=== PATIENT | male | born 1970 | race Caucasian/White ===

== ENCOUNTER 2018-03-01 15:01 | Observation (INO) ==
[2018-03-01] MEDS ORDERED: Sodium Chloride 0.9% 1,000 ML PRIMARY IV ONE (15:25)
--- NOTE | 2018-03-01 15:29 | EKG ---
[address] [place] [address] Measurements Intervals Leiter Rate: 64 P: 59 CT: 164 QRS: 102 QRSD: 124 T: 117 QT: 417 QTc: 427 Interpretive Statements SINUS RHYTHM POSSIBLE RIGHT VENTRICULAR HYPERTROPHY [SOME/ALL OF: PROMINENT R IN V1, LATE TRANSITION, RAD, SAMANTHA, SSS] ANTEROSEPTAL MYOCARDIAL INFARCTION [40+ ms Q WAVE IN V1-V4], POSSIBLY ACUTE ACUTE CO Compared to ECG 03/05/2017 02:43:21 Myocardial infarct finding now present ST (T wave) deviation no longer present Early repolarization no longer present T-wave abnormality no longer present Electronically Signed On 03-02-18 08:51:12 MDT by Elvin Bobo MD [email or web address]
[2018-03-01 15:42] LABS: BASOPHILS # (AUTO) 0.07 10*3/UL; BLOOD UREA NITROGEN 12 mg/dL (7-22); BUN/CREATININE RATIO 17.14 (6-20); EOSINOPHILS # (AUTO) 0.43 10*3/UL; Hematocrit [HCT] 45.6 % (42.0-52.0); LYMPHOCYTES # (AUTO) 2.37 10*3/uL; MEAN CORPUSCULAR HEMOGLOBIN 32.1 PG (27-31); MEAN CORPUSCULAR HGB CONC 35.1 g/dL (33-37); MEAN CORPUSCULAR VOLUME 91.4 FL (80-90); MEAN PLATELET VOLUME 8.8 FL (7.4-12.2); MONOCYTES # (AUTO) 0.82 10*3/UL (0.3-0.8); MONOCYTES % (AUTO) 11.4 % (5-15); NEUTROPHILS % (AUTO) 48.6 % (50-80); RED BLOOD COUNT 4.99 10^6/uL (4.70-6.10)
[2018-03-01 15:43] LABS: PLATELET MORPHOLOGY COMMENT NORMAL MORPHOLOGY (NORM); RBC MORPHOLOGY COMMENT NORMAL MORPHOLOGY (NORM); WBC MORPHOLOGY COMMENT NORMAL MORPHOLOGY (NORM)
--- NOTE | 2018-03-01 15:51 | DI ---
EXAM: CT Head Without Intravenous Contrast CLINICAL HISTORY: Stroke symptoms TECHNIQUE: Axial computed tomography images of the head/brain without intravenous contrast. COMPARISON: No relevant prior studies available. FINDINGS: Brain: Unremarkable. No evidence of acute intracranial hemorrhage. No significant white matter disease. No edema. No mass effect or midline shift. Ventricles: Unremarkable. No ventriculomegaly. Bones/joints: Unremarkable. No depressed skull fracture. Soft tissues: Unremarkable. Sinuses: Unremarkable as visualized. No acute sinusitis. Mastoid air cells: Unremarkable as visualized. No mastoid effusion. IMPRESSION: Unremarkable noncontrast CT of the head/brain. Critical Value Communications 03/01/18 15:53 Call Doctor Regarding Stroke, called Dr. Karthik Childs on 03/01 15:55 (-06:00)
[2018-03-01] MEDS ORDERED: ASPIRIN 81 MG (BABY) CHEWABLE TABLET PO ONE (17:00)
[2018-03-01] MEDS ORDERED: LIDOCAINE W/ SODIUM BICARB 0.5 ML SYR SUBD PRN (17:29)
--- NOTE | 2018-03-01 17:32 | PDOC ---
HPI - History of Present Illness Date of Service: 03/01/18 Time of Service: 17:00 Chief Complaint: Transient speech difficulty and right arm weakness History of Present Illness: This is a 47 years old male with medical history significant for history of coronary artery disease with previous OR status post 4 vessel CABG in 2016, history of depression and history of neck surgery who came into the hospital with history of speech difficulty and right arm weakness which started 30 minutes before he presented to the ER he said on his way symptoms started to subside and by the time he was here his symptoms resolved. He Had a CT of the head which was negative he didn't take aspirin for 2 days as he ran out and today he took accidentally a dosage of Focalin which is one of his son medications by mistake. He Is denying chest pain or shortness of breath. Past Medical History Medical History: 1. History of coronary artery disease with previous OR status post CABG in 2015. 2. A depression. 3. History of degenerative disc disease Surgical History: 1. CABG in 2016. 2. Inguinal hernia repair. 3. Lumbar spinal fusion. 4. Rotator cuff repair. 5. Sacral Rhizotomy Pertinent Family History: His grandfather from coronary artery disease Past Social History: He used to smoke and quit 20 half years ago, doesn't drink no drugs Tobacco Use: Former Smoker In the Past 12 Months, Have Used or Abuse Any of the Following Substance: Marijuana Alcohol Use: None Medication / Allergies Home Medications: Home Medications 3 Medication Instructions Recorded Confirmed Type Aspirin [Maria C Chewable] 81 mg PO DAILY 02/29/16 03/01/18 History Atorvastatin Calcium 1 tab PO QHS tab 03/01/16 03/01/18 History Metoprolol Tartrate 0.5 tab PO DAILY tab 03/01/16 03/01/18 History mirtazapine 7.5 mg tablet 7.5 mg PO QHS #30 tab 03/12/17 03/01/18 Rx nitroglycerin 0.4 mg sublingual 0.4 mg SL PRN PRN #30 tab 06/20/17 03/01/18 Rx tablet acetaminophen 325 mg capsule 325 mg PO Q6H PRN 11/28/17 03/01/18 History spironolactone 25 mg tablet 12.5 mg PO DAILY 11/28/17 03/01/18 History Escitalopram Oxalate [Lexapro] 10 mg PO DAILY 03/01/18 03/01/18 History Gabapentin 300 mg PO TID 03/01/18 03/01/18 History Allergies/Adverse Reactions: Allergies 3 Allergy/AdvReac Type Severity Reaction Status Date / Time fentanyl AdvReac HALLUCINATI Verified 03/01/18 18:27 ONS morphine AdvReac HALLUCINATI Verified 03/01/18 18:27 ONS Review of Systems - Review of Systems All Systems: Reviewed & No Additional Complaints Except as Stated Exam - Vitals Vital Signs: Vital Signs Temperature 97.9 F Temperature Source Temporal Artery Scan Pulse Rate [Pulse Oximeter] 72 Respiratory Rate 18 Blood Pressure [Right Arm] 139/81 Pulse Ox 97 Oxygen Delivery Method Room Air Height 5 ft 11 in Weight 179 lb 3.2 oz - General General Appearance: No Acute Distress, Cooperative - Head Head Exam: Normal Inspection - Eye Eye Exam: POSITIVE: Normal Appearance - ENT ENT Exam: POSITIVE: Normal Exam - Neck Neck Exam: Normal Inspection - Respiratory Respiratory Exam: POSITIVE: Clear to Auscultation - Bilaterally - Cardiovascular Cardiovascular Exam: POSITIVE: RRR - GI/Abdominal GI/Abdominal Exam: POSITIVE: Normal Bowel Sounds, Non Tender, Non Distended, Soft, No Organomegaly - Rectal Rectal Exam: POSITIVE: Deferred - External Exam: POSITIVE: Deferred - Extremities Extremities Exam: POSITIVE: Normal Inspection - Back Back Exam: POSITIVE: Normal Inspection - Neurological Neurological Exam: POSITIVE: Alert, Oriented x 3, Normal Gait, CN II-XII Intact , No Facial Droop, Speech Intact / Clear - Psychiatric Psychiatric Exam: POSITIVE: Normal Affect Results - Labs CBC and BMP: 03/01/18 14:55 03/01/18 14:55 - EKG Data -: EKG Interpreted by Me Rate: Normal EKG Shows Normal: Sinus Rhythm - EKG Data EKG Interpretation: Other (I don't see significant change from the EKG that he had in 2017) - Imaging Status: Report Reviewed by Me (CT head Unremarkable noncontrast CT of the head /brain.) Assessment and Plan - Patient Problems (1) TIA (transient ischemic attack) Current Visit: Yes Status: Acute Comment: Symptoms suggestive of TIA. We gave him aspirin will continue with aspirin. We'll oreder an MRI of his head and ultrasound of the carotids. He said he had about 6 weeks ago an echocardiogram his ejection fraction was 40%. Depending on the finding we may discuss with neurology and see whether Plavix needs to be added. Will put him on telemetry. Code(s): G45.9 - Transient cerebral ischemic attack, unspecified (2) History of coronary artery disease Current Visit: Yes Status: Acute Comment: Continue previous medications Code(s): Z86.79 - Personal history of other diseases of the circulatory system
[2018-03-01] MEDS ORDERED: Spironolactone Tab 25 MG TAB PO SCH (18:00)
[2018-03-01] MEDS ORDERED: ATORVASTATIN 40 MG TABLET PO SCH (21:00)
[2018-03-01] MEDS ORDERED: Mirtazapine Tab 15 MG TAB PO SCH (21:00)
[2018-03-02] MEDS: GABAPENTIN 300 MG CAPSULE PO SCH ×2 (00:20→11:05)
--- NOTE | 2018-03-02 04:01 | PDOC ---
Neuro Symptoms / Deficit HPI - General Chief Complaint: Neurological Complaints Stated Complaint: stoke symptoms Date Seen by Provider: 03/01/18 Time Seen by Provider: 15:30 Source: POSITIVE: Patient, EMS Exam Limitations: POSITIVE: No limitations Nurse's Notes Reviewed & Considered: Yes EMS Report Reviewed & Considered: Verbal - History of Present Illness Initial Comments: The patient is a 47-year-old male who arrives to the emergency room by ambulance. He states that approximately 40 minutes [employer] he was visiting with his father and then developed an abrupt onset of expressive aphasia and weakness in his right upper extremity with some associated confusion. He states he "wasn't able to speak". He states he was not able to grasp with his right hand. Bystanders called the ambulance. He states his symptoms began to improve in route to the hospital and his symptoms are much less now. He is presently able to express himself and there is no obvious aphasia. He still has some residual weakness to his right hand grasp. He denies any head, chest or abdominal pain. No recent head trauma. No difficulty swallowing. No lower extremity symptoms. Body Location Affected: REPORTS: Upper Extremity (R) (Right upper extremity weakness), Other (Aphasia) Timing: REPORTS: Abrupt Duration: 1 hour (Onset reportedly about 40 minutes [employer]) Severity: Moderate Quality: REPORTS: Other (Denies any head, chest or other pain) Context: DENIES: Insect Bite, Tick Bite, Falling Injury, Head Injury, Other Character of Deficit(s): REPORTS: RUE, Other (Expressive aphasia) Associated Symptoms: DENIES: Fever, Chills, Sweating, Chest Pain, Neck Pain, Back Pain, Headache, Fainting, Seizure, Altered Mental Status, Disoriented, Confused, Agitated, Trouble Concentrating, Trouble Thinking, Decreased Responsiveness, Unresponsive, Other Usual Ability to Walk/Stand: REPORTS: Walks w/o Assistance Usual Cognition: REPORTS: Alert & Oriented x3 Similar Symptoms Previously: No Recently seen/treated/hospitalized: No Any Prior Injuries Related to Current Complaint?: No - Patient Home Medications Home Medications: Home Medications Aspirin [Maria C Chewable] 81 mg PO DAILY 02/29/16 Atorvastatin Calcium 1 tab PO QHS tab 03/01/16 Metoprolol Tartrate 0.5 tab PO DAILY tab 03/01/16 mirtazapine 7.5 mg tablet 7.5 mg PO QHS #30 tab 03/12/17 nitroglycerin 0.4 mg sublingual tablet 0.4 mg SL PRN PRN #30 tab 06/20/17 acetaminophen 325 mg capsule 325 mg PO Q6H PRN 11/28/17 spironolactone 25 mg tablet 12.5 mg PO DAILY 11/28/17 Escitalopram Oxalate [Lexapro] 10 mg PO DAILY 03/01/18 Gabapentin 300 mg PO TID 03/01/18 - Patient Allergies Allergies/Adverse Reactions: Allergies 3 Allergy/AdvReac Type Severity Reaction Status Date / Time fentanyl AdvReac HALLUCINATI Verified 03/01/18 18:27 ONS morphine AdvReac HALLUCINATI Verified 03/01/18 18:27 ONS Past Medical History - heen HEENT History: Denies History Additional HEENT History: left ear feels like pressure Cardiovascular History: Previous [place], Other (please comment) Additional Cardiovasular History: 4 VESSEL CABG 02-09-16 Respiratory History: Denies History Additional Respiratory History: previous smoker 2 years ago Gastrointestinal History: Denies History Genitourinary History: Denies History Endocrine History: Denies History Musculoskeletal History: Other (please comment) Prosthesis or Implant: No Additional Musculoskeletal History: C4-6 fusion. RIGHT SHOULDER SCOPE Neurological History: TIA Blood Disorders: Denies History Psychiatric History: Depression, Anxiety Disorders History of Sexually Transmitted Diseases: No Male Reproductive History: Denies History Cancer History: Denies History In Past Year Been Physically Harmed or Verbally Threatened: No History of MDRO: No History of Other Communicable Diseases: No Tobacco Use: Former Smoker Alcohol Use: Rarely In the Past 12 Months, Have Used or Abuse Any Substance: Marijuana Previous Surgical History: Yes Type / Date of Surgery: RIGHT SHOULDER, FUSION C4-6, 4 VESSEL CABG, hernia, eye surgery Anesthesia Reactions: No Malignant Hyperthermia: No Significant Family History: Heart disease, Cancer, Diabetes Additional Family History: both sides diabetes, cardiac mother side, cancer both sides Past Medical History Reviewed: Reviewed - No Changes ROS - Limitations ROS Limitations: No Limitations Constitution: REPORTS: Denies Symptoms Cardiovascular: REPORTS: Denies Cardiac Symptoms Respiratory: REPORTS: Denies Resp Symptoms Neurological: REPORTS: Weakness (Right upper extremity, especially with hand grasp), Other (Expressive aphasia. Neurologic symptoms resolving well by the time the patient reaches the emergency room) Gastrointestinal: REPORTS: Denies GI Symptoms Endocrine: REPORTS: Denies Symptoms Musculoskeletal: REPORTS: Denies MS Symptoms Genitourinary: REPORTS: Denies Symptoms Eyes: REPORTS: Denies Symptoms ENT: REPORTS: Denies Symptoms Skin: REPORTS: Denies Skin Symptoms Lympathic: REPORTS: Denies Lympathic Symptoms Immunologic: POSITIVE: Denies Symptoms Psychiatric: POSITIVE: Denies Psych Symptoms Neuro Symptoms / Deficit Exam - General Appearance General Appearance: POSITIVE: No Acute Distress, Alert - HEENT HEENT: POSITIVE: Head Inspection Nml, Eyes Inspection Nml, Ears Inspection Nml, Nose Inspection Nml, Oral/Dental Inspect. Nml, Pharynx Inspect. Nml, PERRL, EOMI - Pupil Size Pupil Size: 4 mm: Bilateral (PERRLA; extraocular movements intact) - Neuro / Psych Higher Functions: POSITIVE: Oriented to Person, Oriented to Place, Oriented to Time, Normal Speech, Normal Cognition, Appropriate Mood, Appropriate Affect. NEGATIVE: Disoriented to Person, Disoriented to Place, Disoriented to Time, Speech Abnormalities, Cognition Abnormalities, Depressed Mood, Depressed Affect , Abnml Response to Command, No Response to Command, Eyes Open to Command, Slow Response to Command, Inapp Response to Command, Expressive Aphasia, Receptive Aphasia, Abnml Response to Pain, Withdraws to Pain, Flexor to Pain, Extensor to Pain, No Response to Pain, Dysarthria, Other Cranial Nerves: POSITIVE: Normal As Tested, No Evidence of Acute CVA Cerebellar: POSITIVE: Normal As Tested Peripheral Exam: POSITIVE: Sensation Normal, Reflexes Normal. NEGATIVE: Motor Normal (Patient has some residual weakness in right hand grasp. No appreciable pronator drift at this time. No other gross motor deficits.), Weakness (Mild weakness right hand grasp), Hemiparesis, Hemiplegia, Dyspraxia, Pronator Drift RUE, Pronator Drift LUE, Altered Light-Touch, Altered Pin-Prick, Tremors, Abnormal Movements, Babinski Reflex Reflexes: Patellar (R): 2+, Patellar (L): 2+ - Neck Neck: POSITIVE: Supple, Non-Tender, No Carotid Bruit - Respiratory Respiratory: POSITIVE: No Respiratory Distress, Breath Sounds Normal - Cardiovascular Cardiovascular: POSITIVE: Regular Rate & Rhythm, Heart Sounds Normal Peripheral Pulses: Radial (R): 2+, Radial (L): 2+ - Abdomen Abdomen: Soft: (All Quadrants), Normal Bowel Sounds: (All Quadrants), Denies Tenderness: (All Quadrants), No Splenomegaly: (All Quadrants), No Hepatomegaly: (All Quadrants), No Guarding: (All Quadrants), No Rebound: (All Quadrants), No Palpable Pulse: (All Quadrants), No Palpabale Mass: (All Quadrants), No Distention: (All Quadrants), No Rigidity: (All Quadrants) - Skin Skin: POSITIVE: Intact, Normal For Race, Warm, Dry, No Rash - Extremities Extremity: Non-Tender: (All Extremities), Normal ROM: (All Extremities), Normal Inspection: (All Extremities) Images - Complete Complete: 1 - Mild residual weakness right hand grasp 2 - Mild residual weakness right hand grasp Neuro Symptom/Deficit Progress - Results Reviewed by me Xrays/CTs/US Reviewed by me: Yes Discussed with Radiologist: Yes Radiology Findings: CT scan head without contrast normal Lab Results Reviewed by Me: Yes CBC and BMP: 03/01/18 14:55 03/01/18 14:55 Lab Results:: Laboratory Results 3 03/01/18 03/01/18 03/01/18 14:55 14:55 14:55 WBC 7.20 RBC 4.99 Hgb 16.0 Hct 45.6 MCV 91.4 H MCH 32.1 H MCHC 35.1 RDW Std Deviation 47.3 RDW Coeff of Kaylah 14.4 Plt Count 341 MPV 8.8 Immature Gran % (Auto) 0.1 Neut % (Auto) 48.6 L Lymph % (Auto) 32.9 Dickey % (Auto) 11.4 Eos % (Auto) 6.0 Baso % (Auto) 1.0 Immature Gran # (Auto) 0.01 Neut # (Auto) 3.50 Lymph # (Auto) 2.37 Dickey # (Auto) 0.82 H Eos # (Auto) 0.43 Baso # (Auto) 0.07 WBC Morphology Comment Normal morphology Plt Morphology Comment Normal morphology RBC Morph Comment Normal morphology PT 10.9 INR 1.06 Sodium Potassium Chloride Carbon Dioxide Anion Gap BUN Creatinine Estimated GFR BUN/Creatinine Ratio Glucose Calculated Osmolality Calcium Total Bilirubin AST ALT Alkaline Phosphatase Total Protein Albumin Globulin Albumin/Globulin Ratio TSH 0.045 L Free T4 1.46 3 03/01/18 14:55 WBC RBC Hgb Hct MCV MCH MCHC RDW Std Deviation RDW Coeff of Kaylah Plt Count MPV Immature Gran % (Auto) Neut % (Auto) Lymph % (Auto) Dickey % (Auto) Eos % (Auto) Baso % (Auto) Immature Gran # (Auto) Neut # (Auto) Lymph # (Auto) Dickey # (Auto) Eos # (Auto) Baso # (Auto) WBC Morphology Comment Plt Morphology Comment RBC Morph Comment PT INR Sodium 139 Potassium 4.1 Chloride 106 Carbon Dioxide 26 Anion Gap 7 BUN 12 Creatinine 0.7 Estimated GFR > 60 BUN/Creatinine Ratio 17.14 Glucose 107 Calculated Osmolality 287.0 Calcium 9.7 Total Bilirubin 0.6 AST 30 ALT 25 Alkaline Phosphatase 80 Total Protein 8.9 H Albumin 5.0 H Globulin 3.9 Albumin/Globulin Ratio 1.20 L TSH Free T4 EKG Interpreted/Reviewed By Me:: Yes (normal sinus rhythm; normal) EKG Interpretation:: POSITIVE: Normal Sinus Rhythm, Normal Rate, Normal Intervals, Normal [place], Normal QRS, Normal ST/T - Patient's Progress Pain Medication Addressed: POSITIVE: Not Applicable School/Work Release Addressed: POSITIVE: Not Applicable Re-Examine Time:: 16:25 Re-Examine Comment: Neurologic symptoms completely cleared on discharge. Hand grasps full and symmetrical. No aphasia. No gross motor or sensory symptoms. Status: POSITIVE: Improved, Re-Examined Antibiotics Given: No CVA/Syncope Quality Measure Initiative: POSITIVE: EKG - Consult Consult (If Yes, Name of Consulting MD & Time Called): Yes (Dr. Lizarraga, hospitalist, [id number]) Consulting MD will see pt:: POSITIVE: [facility] [place] Counseled: POSITIVE: Patient, RE: Lab Results, RE: Radiology Results, RE: DX, RE : Need for F/U Patient Care Time - Estimated PCT Patient Care Time (In Minutes): 50 Vital Signs - VS Reviewed Vital Signs Reviewed: Yes Discharge Clinical Impression: Transient ischemic attack Discharge Disposition: Admit to Inpatient Condition: Fair Date Decision to Admit to Inpatient: 03/01/18 Time Decision to Admit to Inpatient: 16:20
[2018-03-02 05:33] LABS: CHOL/HDL RATIO 3.23 RATIO (0-4.0)
[2018-03-02 07:41] VITALS: BP 141/96; RESP 18; TEMP 97.6; O2SAT 96
--- NOTE | 2018-03-02 08:20 | DI ---
MRI Brain WO Contrast,03/02/2018 7:00 AM: Clinical History: Transient speech difficulty and right arm weakness. Previous Exam: CT head performed March 01, 2018 Findings: Multiplanar MR images are obtained through the brain without contrast, and demonstrates normal, symme tric ventricles and other CSF containing spaces. There is no mass, hemorrhage or midline shift. There is no abnormally restricted diffusion. Midline structures are unremarkable. The posterior fossa is normal. The sella and parasellar region is unremarkable. The upper cervical spine is unremarkable. The intraorbital structures are unremarkable. The surrounding soft tissues are unremarkable. Paranasal sinuses are also unremarkable. There are few scattered areas of increased FLAIR and T2 signal within the subcortical white matter wi thin the frontal lobes bilaterally. Impression: A few scattered areas of increased FLAIR and T2 signal within the subcortical white matter within the frontal lobes most consistent with small vessel ischemic changes.
--- NOTE | 2018-03-02 08:38 | DI ---
MRI MRA Head WO Contrast,03/02/2018 7:00 AM: Clinical History: Right arm weakness and speech difficulty Previous Exam: None at this facility. Findings: Multiplanar MR images are obtained through the the brain following a 3-D [id number] protocol, and demonstrate some irregular thinning of the distal internal carotid arteries bilaterally. The vertebral arteries and the basilar artery are normal. There is no evidence of aneurysm. The anterior communicating artery is normal. The posterior communicating arteries are within normal limits. The middle cerebral arteries and posterior cerebral arteries are normal. Impression: Mild irregularity of the distal internal carotid arteries. No evidence of aneurysm.
[2018-03-02] MEDS ORDERED: Spironolactone Tab 25 MG TAB PO SCH (09:00)
[2018-03-02] MEDS ORDERED: Metoprolol TARTRATE Tab 25 MG TAB PO SCH (09:00)
[2018-03-02] MEDS ORDERED: ASPIRIN 325 MG TABLET PO SCH (09:00)
[2018-03-02] MEDS ORDERED: ESCITALOPRAM 10 MG TABLET PO SCH (09:00)
--- NOTE | 2018-03-02 09:41 | DI ---
US Carotids Bilateral,03/02/2018 7:00 AM: Clinical History: Transient right arm weakness and speech difficulty. Previous Exam: None at this facility. Findings: Multiple grayscale and color Doppler sonographic images are obtained of the carotid systems bilateral ly, and demonstrate no significant peripheral vascular disease. There is mild endothelial thickening. There is mild spectral broadening. There are no cystic areas. Peak systolic velocities: RIGHT- Peak systolic velocity of common carotid artery measured 100 cm/s. Peak systolic velocity of the internal carotid artery measured 84 cm/s. Flow within the vertebral arteries is antegrade. LEFT- Peak systolic velocity within the left common carotid artery measures 103 cm/s. Peak systolic velocity of the internal carotid artery measures 104 cm/s. Flow within the vertebral artery is antegrade. There is a large area of plaque formation within the left carotid bulb. This demonstrates posterior s hadowing consistent with calcified plaque. ICA to CCA ratio on the right measured 1.1 and on the left measured 1.2. Impression: Shadowing plaque seen within the left carotid bulb without any hemodynamically significant stenosis.
[2018-03-02] MEDS ORDERED: ACETAMINOPHEN 325 MG TABLET PO PRN (10:03)
--- NOTE | 2018-03-02 10:43 | DCSUMMARY ---
Hospitalization Summary Admit Date: 03/01/2018 Discharge Date: 03/02/18 Hospital Course: Discharge diagnoses 1. Faint increased signal on diffusion-weighted images within the left insular cortex this is worrisome for an area of acute to subacute ischemia, patient symptoms resolved 2. History of coronary artery disease status post CABG in 2015 3. History of depression 4. History of degenerative disc disease 5. Plaque in the left carotid no hemodynamically significant stenosis Hospital course This is a 47 years old male with medical history significant for history of coronary artery disease with previous MO status post 4 vessel CABG in 2016, history of depression and history of neck surgery who came into the hospital history of speech difficulty and right arm weakness which started 30 minutes before he presented to the ER. On his way to the ER his symptoms started to subside and by the time he was here his symptoms resolved completely. A CT of the head was negative he didn't take aspirin he said for 2 days as he ran out and he accidentally took a dosage of focalin which belongs to his son by mistake. By the time I saw him his exam was completely normal there was no focal deficit. We kept him overnight we did an MRI of the brain which showed a faint increased signal on diffusion-weighted images within the left insular cortex which is the worrisome for an area of acute to subacute ischemia. Ultrasound showed plaque in the left carotid. Because of the finding on the MRI I did speak with Dr. Avina the neurologist and he suggested dual antiplatelet therapy. We did give him Plavix and he will follow-up with his primary after that. Dr. Avina suggested indefinite treatment because of his coronary artery disease. Laboratory Results 03/01/18 03/01/18 03/01/18 Range/Units 14:55 14:55 14:55 WBC 7.20 (4.8-10.8) 10^3/uL RBC 4.99 (4.70-6.10) 10^6/uL Hgb 16.0 (14.0-18.0) g/dL Hct 45.6 (42.0-52.0) % MCV 91.4 H (80-90) FL MCH 32.1 H (27-31) PG MCHC 35.1 (33-37) g/dL RDW Std Deviation 47.3 (39-50) fL RDW Coeff of Kaylah 14.4 (11.5-14.5) % Plt Count 341 (140-350) 10*3/uL MPV 8.8 (7.4-12.2) FL Immature Gran % (Auto) 0.1 (0-5) % Neut % (Auto) 48.6 L (50-80) % Lymph % (Auto) 32.9 (10-50) % [place] % (Auto) 11.4 (5-15) % Eos % (Auto) 6.0 (0-8) % Baso % (Auto) 1.0 (0-1) % Immature Gran # (Auto) 0.01 10*3/UL Neut # (Auto) 3.50 10*3/UL Lymph # (Auto) 2.37 10*3/uL [place] # (Auto) 0.82 H (0.3-0.8) 10*3/UL Eos # (Auto) 0.43 10*3/UL Baso # (Auto) 0.07 10*3/UL WBC Morphology Comment Normal morphology (NORM) Plt Morphology Comment Normal morphology (NORM) RBC Morph Comment Normal morphology (NORM) PT 10.9 (9.7-11.4) secs INR 1.06 (0.00-5.90) N/A Sodium (135-145) meq/L Potassium (3.8-5.2) meq/L Chloride (98-112) meq/L Carbon Dioxide (23-33) meq/L Anion Gap (5-20) BUN (7-22) mg/dL Creatinine (0.70-1.50) mg/dL Estimated GFR (>60 ml/min/1.73m(2)) BUN/Creatinine Ratio (6-20) Glucose (78-110) mg/dL Calculated Osmolality (267-292) mOsm/kg Calcium (8.7-10.7) mg/dL Total Bilirubin (0.3-1.2) mg/dL AST (21-57) IU/L ALT (21-72) IU/L Alkaline Phosphatase (38-126) IU/L Total Protein (6.1-8.0) g/dL Albumin (3.5-4.8) g/dL Globulin (2.50-4.10) g/dL Albumin/Globulin Ratio (1.3-2.0) mg/g Triglycerides (44-200) mg/dL Cholesterol (120-200) mg/dL LDL Cholesterol, Calc mg/dL VLDL Cholesterol (0-40) mg/dL HDL Cholesterol (40-150) mg/dL Cholesterol/HDL Ratio (0-4.0) RATIO TSH 0.045 L (0.2700-4.2000) uIU/mL Free T4 1.46 (0.93-1.71) ng/dL 03/01/18 03/02/18 Range/Units 14:55 04:37 WBC (4.8-10.8) 10^3/uL RBC (4.70-6.10) 10^6/uL Hgb (14.0-18.0) g/dL Hct (42.0-52.0) % MCV (80-90) FL MCH (27-31) PG MCHC (33-37) g/dL RDW Std Deviation (39-50) fL RDW Coeff of Kaylah (11.5-14.5) % Plt Count (140-350) 10*3/uL MPV (7.4-12.2) FL Immature Gran % (Auto) (0-5) % Neut % (Auto) (50-80) % Lymph % (Auto) (10-50) % [place] % (Auto) (5-15) % Eos % (Auto) (0-8) % Baso % (Auto) (0-1) % Immature Gran # (Auto) 10*3/UL Neut # (Auto) 10*3/UL Lymph # (Auto) 10*3/uL [place] # (Auto) (0.3-0.8) 10*3/UL Eos # (Auto) 10*3/UL Baso # (Auto) 10*3/UL WBC Morphology Comment (NORM) Plt Morphology Comment (NORM) RBC Morph Comment (NORM) PT (9.7-11.4) secs INR (0.00-5.90) N/A Sodium 139 (135-145) meq/L Potassium 4.1 (3.8-5.2) meq/L Chloride 106 (98-112) meq/L Carbon Dioxide 26 (23-33) meq/L Anion Gap 7 (5-20) BUN 12 (7-22) mg/dL Creatinine 0.7 (0.70-1.50) mg/dL Estimated GFR > 60 (>60 ml/min/1.73m(2)) BUN/Creatinine Ratio 17.14 (6-20) Glucose 107 (78-110) mg/dL Calculated Osmolality 287.0 (267-292) mOsm/kg Calcium 9.7 (8.7-10.7) mg/dL Total Bilirubin 0.6 (0.3-1.2) mg/dL AST 30 (21-57) IU/L ALT 25 (21-72) IU/L Alkaline Phosphatase 80 (38-126) IU/L Total Protein 8.9 H (6.1-8.0) g/dL Albumin 5.0 H (3.5-4.8) g/dL Globulin 3.9 (2.50-4.10) g/dL Albumin/Globulin Ratio 1.20 L (1.3-2.0) mg/g Triglycerides 86 (44-200) mg/dL Cholesterol 110 L (120-200) mg/dL LDL Cholesterol, Calc 58.800 mg/dL VLDL Cholesterol 17 (0-40) mg/dL HDL Cholesterol 34 L (40-150) mg/dL Cholesterol/HDL Ratio 3.23 (0-4.0) RATIO TSH (0.2700-4.2000) uIU/mL Free T4 (0.93-1.71) ng/dL Discharge suction Diet regular activity as started Medications Current Medication(s) 3 Medication Instructions Recorded Confirmed Type Aspirin [Maria C Chewable Aspirin] 81 mg PO DAILY 02/29/16 03/01/18 History Atorvastatin Calcium 1 tab PO QHS tab 03/01/16 03/01/18 History Metoprolol Tartrate 0.5 tab PO DAILY tab 03/01/16 03/01/18 History mirtazapine 7.5 mg tablet 7.5 mg PO QHS #30 tab 03/12/17 03/01/18 Rx nitroglycerin 0.4 mg sublingual 0.4 mg SL PRN PRN #30 tab 06/20/17 03/01/18 Rx tablet acetaminophen 325 mg capsule 325 mg PO Q6H PRN 11/28/17 03/01/18 History spironolactone 25 mg tablet 12.5 mg PO DAILY 11/28/17 03/01/18 History Escitalopram Oxalate [Lexapro] 10 mg PO DAILY 03/01/18 03/01/18 History Gabapentin 300 mg PO TID 03/01/18 03/01/18 History Clopidogrel [Plavix] 75 mg PO DAILY #30 tab 03/02/18 Rx Follow-up with PCP in 1-2 weeks Condition at discharge was stable for discharge Exam - Vitals Vital Signs: Vital Signs Temperature 97.6 F Temperature Source Temporal Artery Scan Pulse Rate [Apical] 88 Pulse Rate [Pulse Oximeter] 62 Pulse Rate 64 Respiratory Rate 18 Blood Pressure [Right Arm] 141/96 Pulse Ox 96 Oxygen Delivery Method Room Air Height 5 ft 11 in Weight 179 lb 3.2 oz - General General Appearance: No Acute Distress, Cooperative - Head Head Exam: Normal Inspection - Eye Eye Exam: POSITIVE: Normal Appearance - ENT ENT Exam: POSITIVE: Normal Exam - Neck Neck Exam: Normal Inspection - Respiratory Respiratory Exam: POSITIVE: Clear to Auscultation - Bilaterally - Cardiovascular Cardiovascular Exam: POSITIVE: RRR - GI/Abdominal GI/Abdominal Exam: POSITIVE: Normal Bowel Sounds, Non Tender, Non Distended, Soft, No Organomegaly - Rectal Rectal Exam: POSITIVE: Deferred - External Exam: POSITIVE: Deferred Exam: POSITIVE: Deferred - Extremities Extremities Exam: POSITIVE: Normal Inspection - Back Back Exam: POSITIVE: Normal Inspection - Neurological Neurological Exam: POSITIVE: Alert, Oriented x 3, Normal Gait, CN II-XII Intact , No Facial Droop, Speech Intact / Clear, Moves All Extremities Equally - Psychiatric Psychiatric Exam: POSITIVE: Normal Affect - Integumentary Integumentary Exam: POSITIVE: Normal Color Patient Problems - Patient Problem List (1) TIA (transient ischemic attack) Status: Acute Code(s): G45.9 - Transient cerebral ischemic attack, unspecified Category: Medical (2) History of coronary artery disease Status: Acute Code(s): Z86.79 - Personal history of other diseases of the circulatory system Category: Medical
[2018-03-02] MEDS ORDERED: Influenza 18-19 Vaccine (6mo+) 60 MCG/0.5 ML SYRINGE IM ONE (11:04)
[2018-03-02] MEDS ORDERED: CLOPIDOGREL 75 MG TABLET PO ONE (11:11)
== END 2018-03-02 11:33 | disposition home or self-care (01) ==
LOC: MED/SURG 15:01 → ER 15:01 → MED/SURG 16:40
PROVIDERS: ADMIT Internal Medicine; ATTEND Internal Medicine

== ENCOUNTER 2018-11-26 20:22 | Observation (INO) ==
[2018-11-26] MEDS ORDERED: ASPIRIN 81 MG (BABY) CHEWABLE TABLET PO ONE (20:33)
[2018-11-26] MEDS ORDERED: NITROGLYCERIN 0.4 MG SL TAB (BOTTLE OF 3) SL ONE (20:33)
[2018-11-26] MEDS ORDERED: ONDANSETRON 4 MG/2 ML VIAL IVP ONE (20:39)
[2018-11-26] MEDS ORDERED: MORPHINE SULFATE 4 MG/1 ML IVP ONE (20:40)
[2018-11-26] MEDS ORDERED: Sodium Chloride 0.9% 1,000 ML PRIMARY IV ONE (20:40)
--- NOTE | 2018-11-26 20:41 | EKG ---
[address] [place] [address] Measurements Intervals [place] Rate: 54 P: 58 SD: 155 QRS: 99 QRSD: 120 T: 107 QT: 400 QTc: 387 Interpretive Statements SINUS BRADYCARDIA LEFT ATRIAL ENLARGEMENT [-0.15mV P WAVE IN V1/V2] BORDERLINE RIGHT AXIS DEVIATION [QRS AXIS > 90] POSSIBLE INFERIOR MYOCARDIAL INFARCTION [30 ms Q WAVE IN II/aVF], PROBABLY OLD Compared to ECG 03/01/2018 15:11:31 Sinus rhythm no longer present Myocardial infarct finding still present Electronically Signed On 11-27-18 08:55:25 MDT by Elvin Bobo MD [email or web address]
--- NOTE | 2018-11-26 20:41 | PDOC ---
Chest Pain HPI - General Chief Complaint: Chest Pain Stated Complaint: CHEST PAIN X 3 HOURS Date Seen by Provider: 11/26/18 Time Seen by Provider: 20:30 Source: Patient Exam Limitations: POSITIVE: No limitations Treatment Prior to Arrival: REPORTS: None Nurse's Notes Reviewed & Considered: Yes - History of Present Illness Initial Comments: This is a well-developed, well-nourished, 48-year-old male, who presents with chest pain. Patient with sudden onset of chest pain began approximately 30 minutes ago that he describes as pressure that is substernal with radiation to his back. He has associated shortness of breath. Patient has a history of 4 way CABG 3 years previous. When he had onset of chest pain he developed nausea and diaphoresis. Body Location Affected: REPORTS: Chest Timing: REPORTS: Abrupt Duration: 1/2 hour Severity: Moderate Context: REPORTS: Rest Quality: REPORTS: "Pain", Pressure Radiation: REPORTS: Back Associated Symptoms: REPORTS: Nausea, Diaphoresis, Shortness of Breath Modifying Factors: improves with: None Reported Similar Symptoms Previously: Yes Recently seen/treated/hospitalized: No Any Prior Injuries Related to Current Complaint?: No - Patient Home Medications Home Medications: Home Medications Aspirin [Maria C Chewable Aspirin] 81 mg PO DAILY 02/29/16 Atorvastatin Calcium 1 tab PO QHS tab 03/01/16 Metoprolol Tartrate 0.5 tab PO DAILY tab 03/01/16 nitroglycerin 0.4 mg sublingual tablet 0.4 mg SL PRN PRN #30 tab 06/20/17 acetaminophen 325 mg capsule 325 mg PO Q6H PRN 11/28/17 spironolactone 25 mg tablet 12.5 mg PO DAILY 11/28/17 clopidogrel 75 mg tablet 75 mg PO DAILY #90 tab 03/10/18 mirtazapine 7.5 mg tablet 7.5 mg PO QHS #30 tab 03/17/18 gabapentin 300 mg capsule 300 mg PO Q8H PRN #90 cap 06/16/18 escitalopram 10 mg tablet 10 mg PO DAILY #30 tab 06/23/18 - Patient Allergies Allergies/Adverse Reactions: Allergies Allergy/AdvReac Type Severity Reaction Status Date / Time fentanyl AdvReac HALLUCINATI Verified 11/26/18 21:02 ONS morphine AdvReac HALLUCINATI Verified 11/26/18 21:02 ONS Past Medical History - heen HEENT History: Denies History Additional HEENT History: left ear feels like pressure Cardiovascular History: Previous HI, Other (please comment) Additional Cardiovasular History: 4 VESSEL CABG 02-09-16 Respiratory History: Denies History Additional Respiratory History: previous smoker 4. years ago Gastrointestinal History: Denies History Genitourinary History: Denies History Endocrine History: Denies History Musculoskeletal History: Other (please comment) Prosthesis or Implant: No Additional Musculoskeletal History: C4-6 fusion. RIGHT SHOULDER SCOPE Neurological History: TIA Blood Disorders: Denies History Psychiatric History: Depression, Anxiety Disorders History of Sexually Transmitted Diseases: No Male Reproductive History: Denies History Cancer History: Denies History In Past Year Been Physically Harmed or Verbally Threatened: No History of MDRO: No History of Other Communicable Diseases: No Tobacco Use: Current Every Day Smoker Alcohol Use: Rarely In the Past 12 Months, Have Used or Abuse Any Substance: Marijuana Previous Surgical History: Yes Type / Date of Surgery: RIGHT SHOULDER, FUSION C4-6, 4 VESSEL CABG, hernia, eye surgery Anesthesia Reactions: No Malignant Hyperthermia: No Significant Family History: Heart disease, Cancer, Diabetes Additional Family History: both sides diabetes, cardiac mother side, cancer both sides ROS - Limitations ROS Limitations: No Limitations Constitution: REPORTS: Denies Symptoms Cardiovascular: REPORTS: Chest Pain Respiratory: REPORTS: Shortness Of Breath Neurological: REPORTS: Denies Neuro Symptoms Gastrointestinal: REPORTS: Nausea Endocrine: REPORTS: Denies Symptoms Musculoskeletal: REPORTS: Back Pain Genitourinary: REPORTS: Denies Symptoms Eyes: REPORTS: Denies Symptoms ENT: REPORTS: Denies Symptoms Skin: REPORTS: Diaphoresis Lympathic: REPORTS: Denies Lympathic Symptoms Immunologic: POSITIVE: Denies Symptoms Psychiatric: POSITIVE: Denies Psych Symptoms Chest Pain PE - General Appearance General Appearance: REPORTS: Alert, Cooperative, No Evidence of Trauma, Mild Distress - HEENT HEENT: POSITIVE: Head Inspection Nml, Eyes Inspection Nml, Ears Inspection Nml, Nose Inspection Nml, Oral/Dental Inspect. Nml, Pharynx Inspect. Nml, PERRL, EOMI - Neck Neck: REPORTS: Normal Inspection - Respiratory Respiratory: REPORTS: No Respiratory Distress, Breath Sounds Normal, Chest Non- Tender - Cardiovascular Cardiovascular: REPORTS: Regular Rate and Rhythm, Heart Sounds Normal, No Murmur, No Gallop, No Friction Rub, No JVD - Abdomen Abdomen: Soft: (All Quadrants), Normal Bowel Sounds: (All Quadrants), Denies Tenderness: (All Quadrants), No Splenomegaly: (All Quadrants), No Hepatomegaly: (All Quadrants), No Guarding: (All Quadrants), No Rebound: (All Quadrants), No Palpable Pulse: (All Quadrants), No Palpabale Mass: (All Quadrants), No Distention: (All Quadrants), No Rigidity: (All Quadrants) - Skin Skin: REPORTS: Intact, Normal For Race, Warm, Dry, No Rash - Extremities Extremity: Non-Tender: (All Extremities), Normal ROM: (All Extremities), Normal Inspection: (All Extremities), Pelvis Stable: (All Extremities) - Neurological / Psychological Neurological: POSITIVE: Affect Apporpriate, Oriented X3, Motor Normal, Sensation Normal Chest Pain Progress - Results Reviewed by me Xrays/CTs/US Reviewed by me: Yes Discussed with Radiologist: Yes Lab Results Reviewed by Me: Yes CBC and BMP: 11/26/18 20:27 11/26/18 20:27 Lab Results:: Laboratory Results 11/26/18 11/26/18 11/26/18 20:27 20:27 20:27 WBC 9.03 RBC 4.77 Hgb 15.3 Hct 45.0 MCV 94.3 H MCH 32.1 H MCHC 34.0 RDW Std Deviation 46.2 RDW Coeff of Kaylah 13.8 Plt Count 299 MPV 9.1 Immature Gran % (Auto) 0.1 Neut % (Auto) 49.6 L Lymph % (Auto) 35.7 [place] % (Auto) 10.3 Eos % (Auto) 3.4 Baso % (Auto) 0.9 Immature Gran # (Auto) 0.01 Neut # (Auto) 4.48 Lymph # (Auto) 3.22 [place] # (Auto) 0.93 H Eos # (Auto) 0.31 Baso # (Auto) 0.08 WBC Morphology Comment Normal morphology Plt Morphology Comment Normal morphology RBC Morph Comment Normal morphology ESR PT INR APTT D-Dimer 285 Sodium 142 Potassium 4.0 Chloride 107 Carbon Dioxide 21 L Anion Gap 14 BUN 14 Creatinine 0.8 Estimated GFR > 60 BUN/Creatinine Ratio 17.50 Glucose 139 H Calculated Osmolality 296.0 H Calcium 10.2 Magnesium 1.9 Total Bilirubin 0.5 GGT AST 39 ALT 14 L Alkaline Phosphatase 60 Total Creatine Kinase 133 CK-MB (CK-2) Troponin I Handheld C-Reactive Protein NT-Pro-B Natriuret Pep Total Protein 8.6 H Albumin 5.1 H Globulin 3.5 Albumin/Globulin Ratio 1.40 Amylase Lipase 704 H TSH 11/26/18 11/26/18 11/26/18 20:27 20:27 20:27 WBC RBC Hgb Hct MCV MCH MCHC RDW Std Deviation RDW Coeff of Kaylah Plt Count MPV Immature Gran % (Auto) Neut % (Auto) Lymph % (Auto) [place] % (Auto) Eos % (Auto) Baso % (Auto) Immature Gran # (Auto) Neut # (Auto) Lymph # (Auto) [place] # (Auto) Eos # (Auto) Baso # (Auto) WBC Morphology Comment Plt Morphology Comment RBC Morph Comment ESR PT 12.6 H INR 1.09 APTT D-Dimer Sodium Potassium Chloride Carbon Dioxide Anion Gap BUN Creatinine Estimated GFR BUN/Creatinine Ratio Glucose Calculated Osmolality Calcium Magnesium Total Bilirubin GGT AST ALT Alkaline Phosphatase Total Creatine Kinase CK-MB (CK-2) 1.46 Troponin I Handheld 0.020 C-Reactive Protein NT-Pro-B Natriuret Pep Total Protein Albumin Globulin Albumin/Globulin Ratio Amylase Lipase TSH 3.80 11/26/18 11/26/18 11/26/18 20:27 20:27 20:27 WBC RBC Hgb Hct MCV MCH MCHC RDW Std Deviation RDW Coeff of Kaylah Plt Count MPV Immature Gran % (Auto) Neut % (Auto) Lymph % (Auto) [place] % (Auto) Eos % (Auto) Baso % (Auto) Immature Gran # (Auto) Neut # (Auto) Lymph # (Auto) [place] # (Auto) Eos # (Auto) Baso # (Auto) WBC Morphology Comment Plt Morphology Comment RBC Morph Comment ESR 7 PT INR APTT 30.1 D-Dimer Sodium Potassium Chloride Carbon Dioxide Anion Gap BUN Creatinine Estimated GFR BUN/Creatinine Ratio Glucose Calculated Osmolality Calcium Magnesium Total Bilirubin GGT 27 AST ALT Alkaline Phosphatase Total Creatine Kinase CK-MB (CK-2) Troponin I Handheld C-Reactive Protein < 0.5 NT-Pro-B Natriuret Pep 560 H Total Protein Albumin Globulin Albumin/Globulin Ratio Amylase Lipase TSH 11/26/18 20:28 WBC RBC Hgb Hct MCV MCH MCHC RDW Std Deviation RDW Coeff of Kaylah Plt Count MPV Immature Gran % (Auto) Neut % (Auto) Lymph % (Auto) [place] % (Auto) Eos % (Auto) Baso % (Auto) Immature Gran # (Auto) Neut # (Auto) Lymph # (Auto) [place] # (Auto) Eos # (Auto) Baso # (Auto) WBC Morphology Comment Plt Morphology Comment RBC Morph Comment ESR PT INR APTT D-Dimer Sodium Potassium Chloride Carbon Dioxide Anion Gap BUN Creatinine Estimated GFR BUN/Creatinine Ratio Glucose Calculated Osmolality Calcium Magnesium Total Bilirubin GGT AST ALT Alkaline Phosphatase Total Creatine Kinase CK-MB (CK-2) Troponin I Handheld C-Reactive Protein NT-Pro-B Natriuret Pep Total Protein Albumin Globulin Albumin/Globulin Ratio Amylase 113 H Lipase TSH EKG Interpreted/Reviewed By Me:: Yes (sinus bradycardia, 54 bpm, no change from 2018) EKG Interpretation:: POSITIVE: Abnormal EKG - Patient's Progress Pain Medication Addressed: POSITIVE: Yes Re-Examine Time: 23:12 Status: POSITIVE: Improved MDM / ED Course: Patient was evaluated, an IV started, blood drawn and sent to the lab for studies, CT a chest, CT of the abdomen, ultrasound of the abdomen were obtained as well as chest x-ray and EKG. Findings: CBC shows white count hemoglobin and hematocrit and platelets are normal with 49.6% neutrophils. Lipase is 704 and amylase is 113. ESR is 7. TSH is 3.80. BNP is 560. Gamma GT is normal at 27. Coag studies show PT of 12.6, INR 1.09, PTT of 30.1. D-dimer is normal at 285. CMP shows a glucose of 139, albumin of 5.1, total protein of 8.6, ALT of 14, the remainder the panel was normal. Magnesium is normal at 1.9. Troponin is 0.020, CK-MB is 1.46, total CK is 133. TSH is normal at 3.80. EKG, per my interpretation, shows sinus bradycardia with a rate of 54 beats a minute and no change from 2018. Chest x-ray shows bilateral interstitial prominence: Edema versus interstitial l patricia disease. CTA of chest shows no acute findings with no PE present. CT of the abdomen shows no acute intra-abdominal or intrapelvic abnormalities. Ultrasound of the abdomen and gallbladder shows no acute findings. Assessment: #1 Chest pain with normal enzymes and EKG and a strong history of co ronary arterial disease. #2 elevated lipase and amylase. Plan: Patient being admitted to rule out myocardial infarction. Quality Measure Initiative: CP/AMI: POSITIVE: EKG Quality Measure Initiative: CAP: POSITIVE: CXR or CT - Consult Consult (If Yes, Name of Consulting MD & Time Called): Yes (Dr. Galo, 2310 hrs.) Consulting MD will see pt:: [facility]IVE: [facility] Admit Counseled: POSITIVE: Patient, RE: Lab Results, RE: Radiology Results, RE: DX, RE: Need for F/U Patient Care Time - Estimated PCT Patient Care Time (In Minutes): 60 Vital Signs - Recent Vital Signs Vital Signs: Vital Signs (Last 8 hours) Temp Pulse Resp BP Pulse Ox 11/26/18 20:22 98.0 F 61 18 144/107 96 - VS Reviewed Vital Signs Reviewed: Yes Discharge Clinical Impression: Chest pain, Elevated amylase and lipase Discharge Disposition: Admit to Inpatient Condition: Stable Patient Problem(s) Reviewed: Yes Patient Instructions Given at Discharge: Chest Pain (ED) Follow Up With: ULISSES PALMER [Primary Care Provider] - Date Decision to Admit to Inpatient: 11/26/18 Time Decision to Admit to Inpatient: 23:11
[2018-11-26 20:45] LABS: BASOPHILS # (AUTO) 0.08 10*3/UL; BASOPHILS % (AUTO) 0.9 % (0-1); EOSINOPHILS # (AUTO) 0.31 10*3/UL; EOSINOPHILS % (AUTO) 3.4 % (0-8); Hemoglobin [HGB] 15.3 g/dL (14.0-18.0); LYMPHOCYTES # (AUTO) 3.22 10*3/uL; MEAN CORPUSCULAR HEMOGLOBIN 32.1 PG (27-31); MEAN CORPUSCULAR VOLUME 94.3 FL (80-90); MEAN PLATELET VOLUME 9.1 FL (7.4-12.2); MONOCYTES # (AUTO) 0.93 10*3/UL (0.3-0.8); MONOCYTES % (AUTO) 10.3 % (5-15); NEUTROPHILS # (AUTO) 4.48 10*3/UL; NEUTROPHILS % (AUTO) 49.6 % (50-80); PLATELET MORPHOLOGY COMMENT NORMAL MORPHOLOGY (NORM); RBC MORPHOLOGY COMMENT NORMAL MORPHOLOGY (NORM); RED BLOOD COUNT 4.77 10^6/uL (4.70-6.10); WBC MORPHOLOGY COMMENT NORMAL MORPHOLOGY (NORM)
[2018-11-26] MEDS ORDERED: Belladon/PHENobarbital Elixir 10 ML, Lidocaine Viscous Liquid 2% 15 ML, Mag Hyd/Al Hyd/... PO ONE ×3 (20:48)
[2018-11-26 20:51] LABS: BLOOD UREA NITROGEN 14 mg/dL (7-22); LIPASE 704 IU/L (23-300); SERUM ALBUMIN 5.1 g/dL (3.5-4.8)
--- NOTE | 2018-11-26 21:12 | DI ---
EXAM: XR Chest, 1 View CLINICAL HISTORY: chest pain TECHNIQUE: Frontal view of the chest. COMPARISON: 03/05/2017 FINDINGS: Lungs: No consolidation. Interstitial prominence, similar to prior. Pleural space: Unremarkable. No pneumothorax. Heart: Unremarkable. No cardiomegaly. Mediastinum: Stable postoperative mediastinum. Bones/joints: No acute osseous abnormality. IMPRESSION: Nonspecific bilateral interstitial prominence may be related to edema or chronic interstitial lung disease.
--- NOTE | 2018-11-26 22:35 | DI ---
EXAM: CT Angiography Chest Without And With Intravenous Contrast CLINICAL HISTORY: epigastric pain with shortness of breath TECHNIQUE: Axial computed tomographic angiography images of the chest without and with intravenous contrast using pulmonary embolism protocol. MIP reconstructed images were created and reviewed. COMPARISON: 02/15/2016 FINDINGS: Pulmonary arteries: No pulmonary embolus. Aorta: No acute findings. No thoracic aortic aneurysm. Lungs: Unremarkable. No mass. No consolidation. Pleural space: Unremarkable. No significant effusion. No pneumothorax. Heart: Unremarkable. No cardiomegaly. No significant pericardial effusion. Mediastinum: Postoperative mediastinum. Bones/joints: No acute fracture. Soft tissues: Unremarkable. Lymph nodes: Unremarkable. No enlarged lymph nodes. IMPRESSION: No pulmonary embolus.
--- NOTE | 2018-11-26 22:47 | DI ---
EXAM: CT Abdomen and Pelvis With Intravenous Contrast CLINICAL HISTORY: epigastric pain with elevated lipase TECHNIQUE: Axial computed tomography images of the abdomen and pelvis with intravenous contrast. COMPARISON: 02/15/2016 FINDINGS: Lung bases: Unremarkable. No mass. No consolidation. ABDOMEN: Liver: Unremarkable. Gallbladder and bile ducts: Unremarkable. No calcified stones. Pancreas: Unremarkable. Spleen: Unremarkable. Adrenals: Unremarkable. Kidneys and ureters: Small fluid attenuating lesion in the anterior right kidney, likely a cyst. No hydronephrosis. Stomach and bowel: Unremarkable. Bowel is nondilated. PELVIS: Appendix: No findings to suggest acute appendicitis. Bladder: Unremarkable. Reproductive: Unremarkable as visualized. ABDOMEN and PELVIS: Intraperitoneal space: Unremarkable. No free air. Bones/joints: No acute osseous abnormality. Soft tissues: Small fat-containing periumbilical hernia. Vasculature: Unremarkable. No abdominal aortic aneurysm. Lymph nodes: Unremarkable. IMPRESSION: No acute findings.
--- NOTE | 2018-11-26 23:23 | DI ---
EXAM: US Abdomen Complete CLINICAL HISTORY: epigastric pain with elevated lipase TECHNIQUE: Real-time ultrasound of the abdomen (complete) with image documentation. COMPARISON: No relevant prior studies available. FINDINGS: Liver: Unremarkable. No mass. No intrahepatic bile duct dilation. Gallbladder: Unremarkable. No gallstones. Sonographic Tafoya sign is negative. Common bile duct: Unremarkable as visualized. No stones. No dilation. Pancreas: Unremarkable as visualized. Kidneys: No stones. No solid mass. No hydronephrosis. Right renal lesion seen on recent CT was not visualized. Spleen: Unremarkable. No splenomegaly. Aorta: No aneurysm. Inferior vena cava: Unremarkable. IMPRESSION: No acute findings.
[2018-11-26] MEDS ORDERED: LIDOCAINE W/ SODIUM BICARB 0.5 ML SYR SUBD PRN (23:48)
[2018-11-26] MEDS ORDERED: ONDANSETRON 4 MG/2 ML VIAL IVP PRN (23:48)
[2018-11-26] MEDS ORDERED: CALCIUM CARBONATE 500 MG (TUMS) CHEWABLE TABLET PO PRN (23:48)
[2018-11-26] MEDS ORDERED: DOCUSATE 100 MG CAPSULE PO PRN (23:48)
[2018-11-26] MEDS ORDERED: NITROGLYCERIN 0.4 MG SL TAB (BOTTLE OF 3) SL PRN (23:48)
[2018-11-27] MEDS ORDERED: ACETAMINOPHEN 325 MG TABLET PO PRN (00:45)
[2018-11-27] MEDS ORDERED: LORazepam 1 MG TABLET PO ONE ×2 (01:01→16:51)
[2018-11-27] MEDS: ACETAMINOPHEN 325 MG TABLET PO PRN (01:15)
[2018-11-27 06:11] LABS: CHOL/HDL RATIO 3.5 RATIO (0-4.0)
--- NOTE | 2018-11-27 09:49 | STRESSTEST ---
[facility] [place] Interpretive Statements This is a pleasant 48 YO male s/p CABG X 4 vessels 4 years ago, remote history of smoking, + family history, hypercholesterolemia, no DM, who presented with atypical chest pain, non exertional. Ruled out for MN. stress portion of Carmen scan stress test today. Resting EKG, sinus bradycardia. Non specific ST changes in V2 and V3. Had flushing, mid back pain, sinus tachycardia develop, resolved with coffee. T wave flattening in II, III, aVF during study. Plan: stress images today, rest images tomorrow, compile images and radiology to read. [email or web address]
--- NOTE | 2018-11-27 09:51 | PDOC ---
HPI - History of Present Illness Date of Service: 11/27/18 Time of Service: 08:15 Chief Complaint: Chest pressure History of Present Illness: This very pleasant 48-year-old male who has prior history of 4 vessel CABG 4 years ago, history of smoking but quit 4 years ago, high cholesterol, but no hypertension or diabetes, and a positive family history for coronary artery disease as well, who presented at around 9 PM last night with 3 hours of lower substernal epigastric chest pain that was pressure-like in sensation. The patient denied any shortness of breath with this. He's had some significant back problems and is actually looking at possible back surgery so his activities of been down and this was nonexertional pain. He does not have any anxiety issues or heartburn. He tried Tylenol for the pain but it did not help and he felt that since the pain was persistent he should get it checked out he was quite worried about possible heart event. He has a stress test and echocardiogram are rescheduled as an outpatient in workup for pending back surgery. He states it does not feel like his pain at the time of his " maker" heart attack at the time of his CABG and he states that he did not expected to be as he had had prior CABG. Chest pain was nonreproducible on palpation. He states the pain finally resolved around 2 AM or so. His enzymes were negative, and he had an EKG that did not reveal any ST elevations. The lisset lawler was given nitroglycerin in the emergency room and also GI cocktail in the emergency room physician told me he felt the GI cocktail helped him the most. He had an extensive workup for possible pulmonary emboli which was negative, and interestingly his lipase was elevated but his imaging studies were not positive for pancreatitis. He did not have any nausea or vomiting with his chest pain sy mptoms. Past Medical History Medical History: 1. History of coronary artery disease with previous [place] status post CABG in 2016. 2. Hypercholesterolemia. 3. History of degenerative disc disease Surgical History: 1. CABG in 2016. 2. Inguinal hernia repair. 3. Lumbar spinal fusion. 4. Rotator cuff repair. 5. Sacral Rhizotomy. 6. Neck surgery Pertinent Family History: His grandfather from coronary artery disease, his brother has diabetes, both his brother and father have suffered from panc reatitis as well Past Social History: Quit smoking in the past. Does not drink. Currently out of work. Has children that are described as healthy. Not . Tobacco Use: Former Smoker In the Past 12 Months, Have Used or Abuse Any of the Following Substance: None Alcohol Use: None Medication / Allergies Home Medications: Home Medications Medication Instructions Recorded Confirmed Aspirin [Maria C Chewable Aspirin] 81 mg PO DAILY 02/29/16 11/26/18 Atorvastatin Calcium 1 tab PO QHS tab 03/01/16 11/26/18 Metoprolol Tartrate 0.5 tab PO DAILY tab 03/01/16 11/26/18 nitroglycerin 0.4 mg sublingual 0.4 mg SL PRN PRN #30 tab 06/20/17 11/26/18 tablet acetaminophen 325 mg capsule 325 mg PO Q6H PRN 11/28/17 11/12/18 spironolactone 25 mg tablet 12.5 mg PO DAILY 11/28/17 11/26/18 clopidogrel 75 mg tablet 75 mg PO DAILY #90 tab 03/10/18 11/26/18 mirtazapine 7.5 mg tablet 7.5 mg PO QHS #30 tab 03/17/18 11/26/18 gabapentin 300 mg capsule 300 mg PO Q8H PRN #90 cap 06/16/18 11/26/18 escitalopram 10 mg tablet 10 mg PO DAILY #30 tab 06/23/18 11/26/18 Allergies/Adverse Reactions: Allergies Allergy/AdvReac Type Severity Reaction Status Date / Time fentanyl AdvReac HALLUCINATI Verified 11/26/18 21:02 ONS morphine AdvReac HALLUCINATI Verified 11/26/18 21:02 ONS Review of Systems - Review of Systems All Systems: Reviewed & No Additional Complaints Except as Stated (I did a 12 point review systems and it was negative other than that discussed below and in the history of present illness.) - Musculoskeletal Musculoskeletal: REPORTS: Back Pain (Chronic in nature. Looking at possible surgery. No description of sciatica) - Additonal Details Additional ROS Details: Remote history of fractured pelvis with a leg length discrepancy as a result as well. Exam - Vitals Vital Signs: Vital Signs Temperature 97.3 F Temperature Source Temporal Artery Scan Pulse Rate [Pulse Oximeter] 61 Pulse Rate [right finger] 61 Pulse Rate 61 Respiratory Rate 18 Blood Pressure [Right Arm] 130/85 Blood Pressure [Left Arm] 144/107 Blood Pressure 127/88 Pulse Ox [right finger] 95 Pulse Ox 95 Oxygen Delivery Method [right Room Air finger] Oxygen Delivery Method Room Air Height 5 ft 11 in Weight 178 lb - General General Appearance: No Acute Distress, Cooperative - Head Head Exam: Normal Inspection, Normocephalic, Atraumatic - Eye Eye Exam: POSITIVE: No Scleral Icterus - ENT ENT Exam: POSITIVE: Mucous Membranes Moist - Neck Neck Exam: JVP is not Raised - Respiratory Respiratory Exam: POSITIVE: Clear to Auscultation - Bilaterally, Breathing Non Labored, Normal to Percussion and Palpation - Cardiovascular Cardiovascular Exam: POSITIVE: RRR, No Murmur, No Clicks, No Gallops, No Rubs, No JVD - GI/Abdominal GI/Abdominal Exam: POSITIVE: Normal Bowel Sounds, Non Tender, Non Distended, Soft - Rectal Rectal Exam: POSITIVE: Deferred - External Exam: POSITIVE: Deferred Exam: POSITIVE: Deferred - Extremities Extremities Exam: POSITIVE: No Clubbing Present, No Edema Present, No Cyanosis Present - Back Back Exam: POSITIVE: No CVA Tenderness - Neurological Neurological Exam: POSITIVE: Alert, Oriented x 3, No Facial Droop, Speech Intact / Clear, Moves All Extremities Equally - Psychiatric Psychiatric Exam: POSITIVE: Flat Affect - Integumentary Integumentary Exam: POSITIVE: Normal Color, Warm, Dry, Intact Results - Labs CBC and BMP: 11/26/18 20:27 11/26/18 20:27 Additional Lab Results: Laboratory Results 11/26/18 11/26/18 11/26/18 20:27 20:27 20:27 WBC 9.03 RBC 4.77 Hgb 15.3 Hct 45.0 MCV 94.3 H MCH 32.1 H MCHC 34.0 RDW Std Deviation 46.2 RDW Coeff of [place] 13.8 Plt Count 299 MPV 9.1 Immature Gran % (Auto) 0.1 Neut % (Auto) 49.6 L Lymph % (Auto) 35.7 Moody % (Auto) 10.3 Eos % (Auto) 3.4 Baso % (Auto) 0.9 Immature Gran # (Auto) 0.01 Neut # (Auto) 4.48 Lymph # (Auto) 3.22 Moody # (Auto) 0.93 H Eos # (Auto) 0.31 Baso # (Auto) 0.08 WBC Morphology Comment Normal morphology Plt Morphology Comment Normal morphology RBC Morph Comment Normal morphology ESR PT INR APTT D-Dimer 285 Sodium 142 Potassium 4.0 Chloride 107 Carbon Dioxide 21 L Anion Gap 14 BUN 14 Creatinine 0.8 Estimated GFR > 60 BUN/Creatinine Ratio 17.50 Glucose 139 H Calculated Osmolality 296.0 H Calcium 10.2 Magnesium 1.9 Total Bilirubin 0.5 GGT AST 39 ALT 14 L Alkaline Phosphatase 60 Total Creatine Kinase 133 CK-MB (CK-2) Troponin I Handheld Troponin I C-Reactive Protein NT-Pro-B Natriuret Pep Total Protein 8.6 H Albumin 5.1 H Globulin 3.5 Albumin/Globulin Ratio 1.40 Triglycerides Cholesterol LDL Cholesterol, Calc VLDL Cholesterol HDL Cholesterol Cholesterol/HDL Ratio Amylase Lipase 704 H TSH 11/26/18 11/26/18 11/26/18 20:27 20:27 20:27 WBC RBC Hgb Hct MCV MCH MCHC RDW Std Deviation RDW Coeff of Kayl[place] Plt Count MPV Immature Gran % (Auto) Neut % (Auto) Lymph % (Auto) Moody % (Auto) Eos % (Auto) Baso % (Auto) Immature Gran # (Auto) Neut # (Auto) Lymph # (Auto) Moody # (Auto) Eos # (Auto) Baso # (Auto) WBC Morphology Comment Plt Morphology Comment RBC Morph Comment ESR PT 12.6 H INR 1.09 APTT D-Dimer Sodium Potassium Chloride Carbon Dioxide Anion Gap BUN Creatinine Estimated GFR BUN/Creatinine Ratio Glucose Calculated Osmolality Calcium Magnesium Total Bilirubin GGT AST ALT Alkaline Phosphatase Total Creatine Kinase CK-MB (CK-2) 1.46 Troponin I Handheld 0.020 Troponin I C-Reactive Protein NT-Pro-B Natriuret Pep Total Protein Albumin Globulin Albumin/Globulin Ratio Triglycerides Cholesterol LDL Cholesterol, Calc VLDL Cholesterol HDL Cholesterol Cholesterol/HDL Ratio Amylase Lipase TSH 3.80 11/26/18 11/26/18 11/26/18 20:27 20:27 20:27 WBC RBC Hgb Hct MCV MCH MCHC RDW Std Deviation RDW Coeff of Kaylah Plt Count MPV Immature Gran % (Auto) Neut % (Auto) Lymph % (Auto) Moody % (Auto) Eos % (Auto) Baso % (Auto) Immature Gran # (Auto) Neut # (Auto) Lymph # (Auto) Moody # (Auto) Eos # (Auto) Baso # (Auto) WBC Morphology Comment Plt Morphology Comment RBC Morph Comment ESR 7 PT INR APTT 30.1 D-Dimer Sodium Potassium Chloride Carbon Dioxide Anion Gap BUN Creatinine Estimated GFR BUN/Creatinine Ratio Glucose Calculated Osmolality Calcium Magnesium Total Bilirubin GGT 27 AST ALT Alkaline Phosphatase Total Creatine Kinase CK-MB (CK-2) Troponin I Handheld Troponin I C-Reactive Protein < 0.5 NT-Pro-B Natriuret Pep 560 H Total Protein Albumin Globulin Albumin/Globulin Ratio Triglycerides Cholesterol LDL Cholesterol, Calc VLDL Cholesterol HDL Cholesterol Cholesterol/HDL Ratio Amylase Lipase TSH 11/26/18 11/27/18 11/27/18 20:28 00:25 05:49 WBC RBC Hgb Hct MCV MCH MCHC RDW Std Deviation RDW Coeff of Kaylah Plt Count MPV Immature Gran % (Auto) Neut % (Auto) Lymph % (Auto) Moody % (Auto) Eos % (Auto) Baso % (Auto) Immature Gran # (Auto) Neut # (Auto) Lymph # (Auto) Moody # (Auto) Eos # (Auto) Baso # (Auto) WBC Morphology Comment Plt Morphology Comment RBC Morph Comment ESR PT INR APTT D-Dimer Sodium Potassium Chloride Carbon Dioxide Anion Gap BUN Creatinine Estimated GFR BUN/Creatinine Ratio Glucose Calculated Osmolality Calcium Magnesium Total Bilirubin GGT AST ALT Alkaline Phosphatase Total Creatine Kinase CK-MB (CK-2) Troponin I Handheld Troponin I < 0.012 C-Reactive Protein NT-Pro-B Natriuret Pep Total Protein Albumin Globulin Albumin/Globulin Ratio Triglycerides 129 Cholesterol 126 LDL Cholesterol, Calc 64.200 VLDL Cholesterol 25 HDL Cholesterol 36 L Cholesterol/HDL Ratio 3.50 Amylase 113 H Lipase TSH 11/27/18 05:49 WBC RBC Hgb Hct MCV MCH MCHC RDW Std Deviation RDW Coeff of Kaylah Plt Count MPV Immature Gran % (Auto) Neut % (Auto) Lymph % (Auto) Moody % (Auto) Eos % (Auto) Baso % (Auto) Immature Gran # (Auto) Neut # (Auto) Lymph # (Auto) Moody # (Auto) Eos # (Auto) Baso # (Auto) WBC Morphology Comment Plt Morphology Comment RBC Morph Comment ESR PT INR APTT D-Dimer Sodium Potassium Chloride Carbon Dioxide Anion Gap BUN Creatinine Estimated GFR BUN/Creatinine Ratio Glucose Calculated Osmolality Calcium Magnesium Total Bilirubin GGT AST ALT Alkaline Phosphatase Total Creatine Kinase CK-MB (CK-2) Troponin I Handheld Troponin I 0.022 C-Reactive Protein NT-Pro-B Natriuret Pep Total Protein Albumin Globulin Albumin/Globulin Ratio Triglycerides Cholesterol LDL Cholesterol, Calc VLDL Cholesterol HDL Cholesterol Cholesterol/HDL Ratio Amylase Lipase TSH - EKG Data -: EKG Interpreted by Me Rate: Normal EKG Shows Normal: Sinus Rhythm - EKG Data EKG Interpretation: Nonspecific ST-T Wave Changes Assessment and Plan - Patient Problems (1) CAD (coronary artery disease) Current Visit: No Status: Acute Code(s): I25.10 - Atherosclerotic heart disease of [place] coronary artery without angina pectoris Qualifiers: Coronary Disease-Associated Artery/Lesion type: bypass graft [place] vs. transplanted heart: [place] heart Associated angina: with unspecified angina Qualified Code(s): I25.709 - Atherosclerosis of coronary artery bypass graft(s), unspecified, with unspecified angina pectoris (2) Chest pain Current Visit: Yes Status: Acute Code(s): R07.9 - Chest pain, unspecified (3) Elevated amylase and lipase Current Visit: Yes Status: Acute Code(s): R74.8 - Abnormal levels of other serum enzymes (4) Lumbago Current Visit: No Status: Chronic (5) Hypercholesterolemia Current Visit: Yes Status: Acute Code(s): E78.00 - Pure hypercholesterolemia, unspecified (6) History of TIA (transient ischemic attack) Current Visit: Yes Status: Acute Code(s): Z86.73 - Personal history of trans ient ischemic attack (TIA), and cerebral infarction without residual deficits - Assessment / Plan Additional Assessment/Plan Details: Plan: 1. Do serial enzymes and repeat EKG as necessary 2. Aspirin daily. 3. Holding beta blockers that we can get a chemical stress test 4. if diagnosis becomes ACS or unstable angina, add therapeutic lovenox or heparin drip 5. We'll have the patient do a stress test [, chemical ] 6. Proton pump inhibitor may be necessary if GERD like symptoms develop. 5. Nitroglycerin when necessary for chest pain 6. Morphine if necessary via IV, but I will wait and right for it if necessary 7. Oxygen if necessary 8. If testing indicates further need for evaluation, discussion with cardiology. If testing is negative for myocardial infarction and no further indication for coronary artery disease, consider outpatient workup for GI source, pulmonary source, or other 9. Hold off on statin as it can cause pancreatitis and perhaps that the source of the elevated lipase. Biochemically he has pancreatitis, but there is no evidence of pancreatitis on imaging studies. 10. Lipid panel this a.m. 11. Get echocardiogram. His reported ejection fraction in histories is around 40%. I asked me he was not on an ARTI inhibitor and he stated that he was at one point but they've taken him off because of low blood pressures although he wasn't quite sure if this was the reason. 12. Above plan discussed with patient and he agreed.
[2018-11-27] MEDS: ESCITALOPRAM 10 MG TABLET PO SCH (10:01)
[2018-11-27] MEDS: Spironolactone Tab 25 MG TAB PO SCH (10:01)
[2018-11-27] MEDS: CLOPIDOGREL 75 MG TABLET PO SCH (10:01)
[2018-11-27] MEDS: ASPIRIN 81 MG (BABY) CHEWABLE TABLET PO SCH (10:01)
[2018-11-27 11:51] LABS: AMPHETAMINE SCREEN NEGATIVE (NEG); CANNABINOID SCREEN,URINE POSITIVE (NEG); COCAINE SCREEN NEGATIVE (NEG); METHADONE URINE SCREEN NEGATIVE (NEG); METHAMPHETAMINES SCREEN,URINE NEGATIVE (NEG); OPIATE SCREEN,URINE NEGATIVE (NEG); URINE SAMPLE TYPE CLEAN CATCH URINE; URINE SPECIFIC GRAVITY - MAN 1.008
[2018-11-27] MEDS: GABAPENTIN 300 MG CAPSULE PO PRN (12:11)
[2018-11-27] MEDS ORDERED: Mirtazapine Tab 15 MG TAB PO SCH (21:00)
[2018-11-28] MEDS ORDERED: METOPROLOL TARTRATE 5 MG/5 ML VIAL IVP ONE (00:37)
[2018-11-28] MEDS ORDERED: METOPROLOL TARTRATE 5 MG/5 ML VIAL IVP PRN (00:49)
[2018-11-28] MEDS: ACETAMINOPHEN 325 MG TABLET PO PRN (01:32)
[2018-11-28] MEDS: ASPIRIN 81 MG (BABY) CHEWABLE TABLET PO SCH (08:20)
[2018-11-28] MEDS: CLOPIDOGREL 75 MG TABLET PO SCH (08:21)
[2018-11-28] MEDS: ESCITALOPRAM 10 MG TABLET PO SCH (08:21)
[2018-11-28] MEDS: Spironolactone Tab 25 MG TAB PO SCH (08:21)
[2018-11-28] MEDS: GABAPENTIN 300 MG CAPSULE PO PRN (08:24)
[2018-11-28] MEDS ORDERED: LORazepam 1 MG TABLET PO ONE (08:35)
[2018-11-28 09:04] VITALS: RESP 20
[2018-11-28] MEDS ORDERED: Metoprolol TARTRATE Tab 25 MG TAB PO SCH (10:49)
[2018-11-28] MEDS ORDERED: LISINOPRIL 5 MG TABLET PO ONE (10:49)
--- NOTE | 2018-11-28 12:48 | DI ---
2 DAY LEXISCAN STRESS & REST MYOCARDIAL PERFUSION SCANS, 11/27/2018-11/28/2018: Clinical History: Chest pain. Status post CABG. Previous Exam: None at this facility. Monitoring Physician: Dr. Shukri Little. Dose: Stress dose: 37 mCi on 11/27/2018. Rest dose: 36 mCi on 11/28/2018. Quantitative Analysis: [employer] program without and with low dose limited CT chest scan attenuati on correction. Exam Quality: Excellent. Rejected Beats: Stress = 0%; Rest = 0%. HR: Stress = 64-71 b/m; Rest = 96-1 05 b/m. Left Ventricular Chamber Sizes: Dilated at stress and rest. Transient Ischemic Dilatation Ratio: 1.14. Normal Pipo TID <= 1.22; normal Lexiscan TID <= 1.33. LVEF: Stress: 34%. Rest: 31%. Myocardial Perfusion: There are fixed defects in the inferior wall from apex almost to the base, as w ell as the anterolateral wall from apex almost to the base. There is a reversible defect indicating i schemia in the anteroseptal region from apex to base. Myocardial Wall Motion: There is dyskinesis in the anterior septum at stress that improves slightly a t rest. The apex shows akinesis at stress and this improves to hypokinesis at rest. All other pugh s how hypokinesis at stress and rest. Myocardial Thickening: There is minimal myocardial thickening at stress and rest. Coronary Artery Calcifications: Status post CABG. Lungs: No lung nodules or enlarged nodes. Readin. There is left ventricular chamber dilatation at stress and rest. Transient ischemic dilatation ra mayito is normal at 1.14. 2. Severely depressed LVEF values at stress and rest measuring 34%, and 31%, respectively. 3. There is ischemic change involving the septum with fixed defects indicating infarcts involving th e inferior wall and the anterolateral wall. There is dyskinesis at stress that improves to marked hyp okinesis at rest involving the anterior septum, with akinesis of the apex at stress improving to hypo kinesis at rest. There is marked hypokinesis in the inferior wall with all remaining pugh show moder ate hypokinesis at stress and rest. 4. Status post CABG. No pulmonary nodules and no adenopathy noted.
[2018-11-28] MEDS ORDERED: HEPARIN 5000 UNIT/1 ML IV ONE (13:29)
--- NOTE | 2018-11-28 13:29 | DCSUMMARY ---
Hospitalization Summary Admit Date: 11/27/2018 Discharge Date: 11/28/18 Primary Diagnosis:: unstable angina, positive stress test Hospital Course: This is a 48-year-old male who presented here with coronary artery disease history with CABG prior, congestive heart failure with a left ventricular ejection fraction of 40%, remote history smoking as he quit 4 years ago, hypercholesterolemia on moderate dose statin at 40 mg daily, who presented with acute onset chest pain at around 9 PM on the day he presented. It was low substernal, midepigastric and resolved somewhat spontaneously by about 2 AM although he did get nitroglycerin and a GI cocktail. He did not have any ischemic findings on his EKG that had nonspecific ST changes. We did a stress test after he ruled out for myocardial infarction and he has reversible defects in anteroseptal region from apex to base. There is marked hypokinesis and dyskinesis on the stress test as well as an ejection fraction of 31-34% on the stress test versus the echocardiogram. We did do an echocardiogram and Dr. Cristobal kindly call the results to me in the patient had marked hypokinesis and wall motion abnormality that was consistent with an ischemic cardiomyopathy and ejection fraction 40%. Currently the patient is pain-free. He is not short of breath. No nausea or vomiting. Patient does note that he felt some fluttering and we have noticed at times he is and what appears to be high rate sinus tachycardia with rates as high as the 130s to 140s fairly spontaneously and also we note that sometimes with activities. I spoke with Dr. Jimenes, he graciously agreed to accept the patient at [facility], and may consider heart catheterization. He did ask me to put the patient on heparin drip given that he has what appears to be unstable angina with nonexertional chest pain (new onset chest pain and known coronary artery disease). Assessment and Plan: 1. As per discharge assessments noted 2. Disposition: Patient is discharged in [facility] 3. Condition on discharge, stabilized to the best of our ability but with unstable angina, he could certainly deteriorate. 4. Diet: regular diet 5. Activities: As per physician's [facility] 6. Follow-Up: 1. [Primary provider 7 days post discharge. 2. 7. Medications at the Time of Discharge: Active Medications Generic Name Dose Route Start Last Admin Trade Name Freq PRN Reason Stop Dose Admin Acetaminophen 650 mg 11/26/18 23:48 11/28/18 01:32 Tylenol PO 650 mg Q6H PRN Administration Pain or Fever Acetaminophen 325 mg 11/27/18 00:45 Tylenol PO Q6H PRN pain Aspirin 81 mg 11/27/18 09:00 11/28/18 08:20 Aspirin Chewable Tab PO 81 mg DAILY TABITHA Administration Atorvastatin Calcium 40 mg 11/28/18 21:00 Lipitor PO BEDTIME TABITHA Calcium Carbonate 1 - 2 tab 11/26/18 23:48 Tums PO Q6H PRN Heartburn Clopidogrel Bisulfate 75 mg 11/27/18 09:00 11/28/18 08:21 Plavix PO 75 mg DAILY TABITHA Administration Docusate Sodium 100 mg 11/26/18 23:48 Colace PO BID PRN Constipation Escitalopram Oxalate 10 mg 11/27/18 09:00 11/28/18 08:21 Lexapro PO 10 mg DAILY TABITHA Administration Gabapentin 300 mg 11/26/18 23:48 11/28/18 08:24 Neurontin PO 300 mg Q8H PRN Administration neuropathy Heparin Sodium (Porcine) 4,000 unit 11/28/18 13:29 Heparin Inj IV 11/28/18 13:30 BOLUS ONE Sodium Chloride 25 mls @ 200 mls/hr 11/26/18 23:48 Normal Saline 0.9% IV .Post Infusion PRN No Primary IV for Flush ONLY Heparin Sodium/Dextrose 25,000 unit in 500 mls @ 18.724 mls/hr 11/28/18 13:30 Heparin (Premix) IV .Per Protocol [facility] Protocol 12 UNIT/KG/HR Lidocaine HCl 0.5 ml 11/26/18 23:48 Lidocaine Buffered Inj SUBD ONCE PRN IV Starts Lisinopril 5 mg 11/29/18 09:00 Prinivil PO DAILY [facility] Metoprolol Tartrate 5 mg 11/28/18 00:49 Lopressor Inj IVP Q6H PRN Heart Rate Greater Than 115bpm Metoprolol Tartrate 12.5 mg 11/28/18 10:49 11/28/18 11:03 Lopressor Tab PO 12.5 mg DAILY TABITHA Administration Mirtazapine 7.5 mg 11/27/18 21:00 11/27/18 20:32 Remeron PO 7.5 mg BEDTIME [facility] Administration Nitroglycerin 1 tab 11/26/18 23:48 Nitrostat Sl 0.4mg Tab SL Q5M PRN Chest Pain Ondansetron HCl 4 mg 11/26/18 23:48 Zofran Inj IVP Q4H PRN NAUSEA / VOMITING Spironolactone 12.5 mg 11/27/18 09:00 11/28/18 08:21 Aldactone PO 12.5 mg DAILY TABITHA Administration Observation discharge Exam - Vitals Vital Signs: Vital Signs Temperature 97.6 F Temperature Source Temporal Artery Scan Pulse Rate [Pulse Oximeter] 86 Pulse Rate [right finger] 101 Pulse Rate 101 Respiratory Rate 20 Blood Pressure [Right Arm] 144/103 Blood Pressure [Left Arm] 144/107 Blood Pressure 127/88 Pulse Ox [right finger] 94 Pulse Ox 95 Oxygen Delivery Method [right Room Air finger] Oxygen Delivery Method Room Air Height 5 ft 11 in Weight 172 lb - General General Appearance: No Acute Distress, Cooperative - Head Head Exam: Normal Inspection, Normocephalic, Atraumatic - Eye Eye Exam: POSITIVE: No Scleral Icterus - ENT ENT Exam: POSITIVE: Mucous Membranes Moist - Neck Neck Exam: JVP is not Raised - Respiratory Respiratory Exam: POSITIVE: Clear to Auscultation - Bilaterally, Breathing Non Labored - Cardiovascular Cardiovascular Exam: POSITIVE: RRR, No Murmur, No Clicks, No Gallops, No Rubs, No JVD - GI/Abdominal GI/Abdominal Exam: POSITIVE: Normal Bowel Sounds, Non Tender, Non Distended, Soft - Extremities Extremities Exam: POSITIVE: No Clubbing Present, No Edema Present, No Cyanosis Present - Neurological Neurological Exam: POSITIVE: Alert, Oriented x 3, No Facial Droop, Speech Intact / Clear, Moves All Extremities Equally - Psychiatric Psychiatric Exam: POSITIVE: Normal Affect, Normal Mood Data Peritnent Studies: 11/26/18 11/26/18 11/26/18 20:27 20:27 20:27 WBC 9.03 Hgb 15.3 Hct 45.0 Plt Count 299 PT INR APTT D-Dimer 285 Sodium 142 Potassium 4.0 Chloride 107 Carbon Dioxide 21 L Anion Gap 14 BUN 14 Creatinine 0.8 Estimated GFR > 60 BUN/Creatinine Ratio 17.50 Glucose 139 H Calculated Osmolality 296.0 H Calcium 10.2 Magnesium 1.9 Total Bilirubin 0.5 GGT AST 39 ALT 14 L Alkaline Phosphatase 60 Total Creatine Kinase 133 CK-MB (CK-2) Troponin I Handheld Troponin I C-Reactive Protein NT-Pro-B Natriuret Pep Total Protein 8.6 H Albumin 5.1 H Globulin 3.5 Albumin/Globulin Ratio 1.40 Triglycerides Cholesterol LDL Cholesterol, Calc VLDL Cholesterol HDL Cholesterol Cholesterol/HDL Ratio Amylase Lipase 704 H TSH Benzodiazepines Screen U Marijuana (THC) Screen 11/26/18 11/26/18 11/26/18 20:27 20:27 20:27 WBC Hgb Hct Plt Count PT 12.6 H INR 1.09 APTT D-Dimer Sodium Potassium Chloride Carbon Dioxide Anion Gap BUN Creatinine Estimated GFR BUN/Creatinine Ratio Glucose Calculated Osmolality Calcium Magnesium Total Bilirubin GGT AST ALT Alkaline Phosphatase Total Creatine Kinase CK-MB (CK-2) 1.46 Troponin I Handheld 0.020 Troponin I C-Reactive Protein NT-Pro-B Natriuret Pep Total Protein Albumin Globulin Albumin/Globulin Ratio Triglycerides Cholesterol LDL Cholesterol, Calc VLDL Cholesterol HDL Cholesterol Cholesterol/HDL Ratio Amylase Lipase TSH 3.80 Benzodiazepines Screen U Marijuana (THC) Screen 11/26/18 11/26/18 11/26/18 20:27 20:27 20:28 WBC Hgb Hct Plt Count PT INR APTT 30.1 D-Dimer Sodium Potassium Chloride Carbon Dioxide Anion Gap BUN Creatinine Estimated GFR BUN/Creatinine Ratio Glucose Calculated Osmolality Calcium Magnesium Total Bilirubin GGT 27 AST ALT Alkaline Phosphatase Total Creatine Kinase CK-MB (CK-2) Troponin I Handheld Troponin I C-Reactive Protein < 0.5 NT-Pro-B Natriuret Pep 560 H Total Protein Albumin Globulin Albumin/Globulin Ratio Triglycerides Cholesterol LDL Cholesterol, Calc VLDL Cholesterol HDL Cholesterol Cholesterol/HDL Ratio Amylase 113 H Lipase TSH Benzodiazepines Screen U Marijuana (THC) Screen 11/27/18 11/27/18 11/27/18 00:25 05:49 05:49 WBC Hgb Hct Plt Count PT INR APTT D-Dimer Sodium Potassium Chloride Carbon Dioxide Anion Gap BUN Creatinine Estimated GFR BUN/Creatinine Ratio Glucose Calculated Osmolality Calcium Magnesium Total Bilirubin GGT AST ALT Alkaline Phosphatase Total Creatine Kinase CK-MB (CK-2) Troponin I Handheld Troponin I < 0.012 0.022 C-Reactive Protein NT-Pro-B Natriuret Pep Total Protein Albumin Globulin Albumin/Globulin Ratio Triglycerides 129 Cholesterol 126 LDL Cholesterol, Calc 64.200 VLDL Cholesterol 25 HDL Cholesterol 36 L Cholesterol/HDL Ratio 3.50 Amylase Lipase TSH Benzodiazepines Screen U Marijuana (THC) Screen 11/27/18 11/28/18 11:00 00:59 WBC Hgb Hct Plt Count PT INR APTT D-Dimer Sodium Potassium Chloride Carbon Dioxide Anion Gap BUN Creatinine Estimated GFR BUN/Creatinine Ratio Glucose Calculated Osmolality Calcium Magnesium Total Bilirubin GGT AST ALT Alkaline Phosphatase Total Creatine Kinase CK-MB (CK-2) Troponin I Handheld Troponin I < 0.012 C-Reactive Protein NT-Pro-B Natriuret Pep Total Protein Albumin Globulin Albumin/Globulin Ratio Triglycerides Cholesterol LDL Cholesterol, Calc VLDL Cholesterol HDL Cholesterol Cholesterol/HDL Ratio Amylase Lipase TSH Benzodiazepines Screen Positive H U Marijuana (THC) Screen Positive H Procedures: [address] [facility]. [facility] [place] [address] PH: DD: [phone] FAX: [phone] ~DIAGNOSTIC IMAGING REPORT~ Patient: LuisHector : 1970 Sex: M Age: 48 Exam Name: [place] Myocardial Multi-Spect Exam Date: 11/27/18 Report # : [id number] CPT Code: 28803 EMR/MR #: [id number] Ordering: KELSEA OSULLIVAN Admiting: KELSEA OSULLIVAN DO Primary: Mallorie Amador APRN. Attending: KELSEA OSULLIVAN DO Signed 2 DAY LEXISCAN STRESS & REST MYOCARDIAL PERFUSION SCANS, 11/27/2018-11/28/2018: Clinical History: Chest pain. Status post CABG. Previous Exam: None at this facility. Monitoring Physician: Dr. Kelsea Osullivan. Dose: Stress dose: 37 mCi on 11/27/2018. Rest dose: 36 mCi on 11/28/2018. Quantitative Analysis: Dopplr program without and with low dose limited CT chest scan attenuation correction. Exam Quality: Excellent. Rejected Beats: Stress = 0%; Rest = 0%. HR: Stress = 64-71 b/m; Rest = 96-105 b/m. Left Ventricular Chamber Sizes: Dilated at stress and rest. Transient Ischemic Dilatation Ratio: 1.14. Normal Pipo TID <= 1.22; normal Lexiscan TID <= 1.33. LVEF: Stress: 34%. Rest: 31%. Myocardial Perfusion: There are fixed defects in the inferior wall from apex almost to the base, as well as the anterolateral wall from apex almost to the base. There is a reversible defect indicating ischemia in the anteroseptal region from apex to base. Myocardial Wall Motion: There is dyskinesis in the anterior septum at stress that improves slightly at rest. The apex shows akinesis at stress and this improves to hypokinesis at rest. All other pugh show hypokinesis at stress and rest. Myocardial Thickening: There is minimal myocardial thickening at stress and rest. Coronary Artery Calcifications: Status post CABG. Lungs: No lung nodules or enlarged nodes. Readin. There is left ventricular chamber dilatation at stress and rest. Transient ischemic dilatation ratio is normal at 1.14. 2. Severely depressed LVEF values at stress and rest measuring 34%, and 31%, respectively. 3. There is ischemic change involving the septum with fixed defects indicating infarcts involving the inferior wall and the anterolateral wall. There is dyskinesis at stress that improves to marked hypokinesis at rest involving the anterior septum, with akinesis of the apex at stress improving to hypokinesis at rest. There is marked hypokinesis in the inferior wall with all remaining pugh show moderate hypokinesis at stress and rest. 4. Status post CABG. No pulmonary nodules and no adenopathy noted. Dictated By: 11/28/18 1228 RONY CALHOUN MD. Signed By: 11/28/18 1248 RONY CALHOUN MD. [address] [facility] [place] [address] PH: DD: [phone] FAX: [phone] ~DIAGNOSTIC IMAGING REPORT~ Patient: Hector Smith : 1970 Sex: M Age: 48 Exam Name: CT CTA Chest Non-Coronary [facility] Exam Date: 11/26/18 Report # : [id number] CPT Code: 22177 EMR/MR #: [id number] Ordering: Tien Diaz Admiting: Primary: Mallorie Amador APRN. Attending: Signed EXAM: CT Angiography Chest Without And With Intravenous Contrast CLINICAL HISTORY: epigastric pain with shortness of breath TECHNIQUE: Axial computed tomographic angiography images of the chest without and with intravenous contrast using pulmonary embolism protocol. MIP reconstructed images were created and reviewed. COMPARISON: 02/15/2016 FINDINGS: Pulmonary arteries: No pulmonary embolus. Aorta: No acute findings. No thoracic aortic aneurysm. Lungs: Unremarkable. No mass. No consolidation. Pleural space: Unremarkable. No significant effusion. No pneumothorax. Heart: Unremarkable. No cardiomegaly. No significant pericardial effusion. Mediastinum: Postoperative mediastinum. Bones/joints: No acute fracture. Soft tissues: Unremarkable. Lymph nodes: Unremarkable. No enlarged lymph nodes. IMPRESSION: No pulmonary embolus. Dictated By: Cristina Montalvo MD Signed By: 11/26/18 2235 Cristina Montalvo MD [address] [facility]. [facility] [place] [address] PH: DD: [phone] FAX: [phone] ~DIAGNOSTIC IMAGING REPORT~ Patient: Hector Smith : 1970 Sex: M Age: 48 Exam Name: CT Abdomen/Pelvis W Contrast Exam Date: 11/26/18 Report # : [id number] CPT Code: 71753 EMR/MR #: [id number] Ordering: Tien Diaz Admiting: Primary: Mallorie Amador APRN. Attending: ------ Signed EXAM: CT Abdomen and Pelvis With Intravenous Contrast CLINICAL HISTORY: epigastric pain with elevated lipase TECHNIQUE: Axial computed tomography images of the abdomen and pelvis with intravenous contrast. COMPARISON: 02/15/2016 FINDINGS: Lung bases: Unremarkable. No mass. No consolidation. ABDOMEN: Liver: Unremarkable. Gallbladder and bile ducts: Unremarkable. No calcified stones. Pancreas: Unremarkable. Spleen: Unremarkable. Adrenals: Unremarkable. Kidneys and ureters: Small fluid attenuating lesion in the anterior right kidney, likely a cyst. No hydronephrosis. Stomach and bowel: Unremarkable. Bowel is nondilated. PELVIS: Appendix: No findings to suggest acute appendicitis. Bladder: Unremarkable. Reproductive: Unremarkable as visualized. ABDOMEN and PELVIS: Intraperitoneal space: Unremarkable. No free air. Bones/joints: No acute osseous abnormality. Soft tissues: Small fat-containing periumbilical hernia. Vasculature: Unremarkable. No abdominal aortic aneurysm. Lymph nodes: Unremarkable. IMPRESSION: No acute findings. Dictated By: Cristina Montalvo MD Signed By: 11/26/18 2242 Cristina Montalvo MD [address] [place] [address] PH: DD: [phone] FAX: [phone] ~DIAGNOSTIC IMAGING REPORT~ Patient: Hector Smith : 1970 Sex: M Age: 48 Exam Name: XR CXR 1VW Exam Date: 11/26/18 Report # : [id number] CPT Code: 78704 EMR/MR #: [id number] Ordering: Tien Diaz Admiting: Primary: Mallorie Amador APRN. Attending: Signed EXAM: XR Chest, 1 View CLINICAL HISTORY: chest pain TECHNIQUE: Frontal view of the chest. COMPARISON: 03/05/2017 FINDINGS: Lungs: No consolidation. Interstitial prominence, similar to prior. Pleural space: Unremarkable. No pneumothorax. Heart: Unremarkable. No cardiomegaly. Mediastinum: Stable postoperative mediastinum. Bones/joints: No acute osseous abnormality. IMPRESSION: Nonspecific bilateral interstitial prominence may be related to edema or chronic interstitial lung disease. Dictated By: Cristina Montalvo MD Signed By: 11/26/182111 Cristina Montalvo MD Patient Problems - Patient Problem List (1) Unstable angina Current Visit: Yes Status: Acute Code(s): I20.0 - Unstable angina Category: Medical (2) CAD (coronary artery disease) Current Visit: Yes Status: Acute Code(s): I25.10 - Atherosclerotic heart disease of [place] coronary artery without angina pectoris Qualifiers: Coronary Disease-Associated Artery/Lesion type: bypass graft [place] vs. transplanted heart: [place] heart Associated angina: with unstable angina Qualified Code(s): I25.700 - Atherosclerosis of coronary artery bypass graft(s), unspecified, with unstable angina pectoris Category: Medical (3) Chest pain Current Visit: Yes Status: Acute Code(s): R07.9 - Chest pain, unspecified Category: Medical (4) Elevated amylase and lipase Current Visit: Yes Status: Acute Code(s): R74.8 - Abnormal levels of other serum enzymes Category: Medical (5) Lumbago Current Visit: No Status: Chronic Category: Medical (6) Hypercholesterolemia Current Visit: Yes Status: Acute Code(s): E78.00 - Pure hypercholesterolemia, unspecified Category: Medical (7) History of TIA (transient ischemic attack) Current Visit: Yes Status: Acute Code(s): Z86.73 - Personal history of transient ischemic attack (TIA), and cerebral infarction without residual deficits Category: Medical
[2018-11-28] MEDS ORDERED: Heparin Drip 25,000 UNIT/500 ML BAG IV SCH (13:30)
[2018-11-28 14:23] VITALS: BP 120/82; TEMP 98.5; O2SAT 93
[2018-11-28] MEDS ORDERED: ATORVASTATIN 40 MG TABLET PO SCH (21:00)
[2018-11-29] MEDS ORDERED: LISINOPRIL 5 MG TABLET PO SCH (09:00)
== END 2018-11-28 14:53 | disposition short-term general hospital (02) ==
LOC: ER 20:22 → MED/SURG 20:22
PROVIDERS: ADMIT Family Medicine; ATTEND Family Medicine